=== PATIENT | female | born 1970 | race American Indian/Alaskan Native ===

== ENCOUNTER 2022-03-13 15:48 | Inpatient (IN) | payer SELFPAY ==
[2022-03-13] MEDS ORDERED: Sodium Chloride 0.9% 10 ML Syringe FLUSH PRN (16:11)
[2022-03-13] MEDS ORDERED: Albuterol 0.083% 2.5 MG/3 ML Neb Soln NEB PRN (16:11)
[2022-03-13] MEDS ORDERED: Ondansetron 4 MG/2 ML SDV IV PRN (16:11)
[2022-03-13] MEDS: Acetaminophen 325 MG Tab PO PRN (16:56)
[2022-03-13] MEDS: methylPREDNISolone Sodium Succinate 40 MG/1 ML SDV IVPUSH SCH ×2 (16:56→23:42)
[2022-03-13] MEDS: Enoxaparin 40 MG/0.4 ML Syringe SUBCUT SCH (17:00)
[2022-03-13] MEDS: Sodium Chloride 0.9% 1,000 ML IV SCH (17:01)
[2022-03-13] MEDS: Albuterol/Ipratropium 3.0-0.5 MG/3 ML Neb Soln NEB SCH (21:27)
[2022-03-13] MEDS: Melatonin 3 MG Tab PO SCH (21:30)
[2022-03-14] MEDS: Acetaminophen 325 MG Tab PO PRN ×3 (01:12→10:33)
[2022-03-14] MEDS: Sodium Chloride 0.9% 1,000 ML IV SCH ×2 (02:19→08:46)
[2022-03-14] MEDS: Albuterol/Ipratropium 3.0-0.5 MG/3 ML Neb Soln NEB SCH ×4 (07:08→20:19)
[2022-03-14] MEDS: methylPREDNISolone Sodium Succinate 40 MG/1 ML SDV IVPUSH SCH ×3 (08:41→23:32)
[2022-03-14] MEDS: Levothyroxine 50 MCG Tab PO SCH (08:41)
[2022-03-14] MEDS: cefTRIAXone 1 GM in Sodium Chloride 0.9% 50 ML IV SCH (10:34)
[2022-03-14] MEDS: Azithromycin 500 MG in Sodium Chloride 0.9% 250 ML IV SCH (12:15)
[2022-03-14] MEDS ORDERED: Furosemide 40 MG/4 ML VIAL IVPUSH ONE (12:23)
[2022-03-14] MEDS ORDERED: Benzocaine/Cetylpyridinium/Menthol Lozenge MUCMEM PRN (12:26)
[2022-03-14] MEDS ORDERED: Nicotine Polacrilex 2 MG Gum CHEW PRN (12:57)
[2022-03-14] MEDS ORDERED: LORazepam 0.5 MG Tab PO PRN (12:58)
[2022-03-14] MEDS: oxyCODONE 5 MG Tab PO PRN ×2 (13:05→20:28)
[2022-03-14] MEDS: Nicotine 14 MG/24 Hr Patch TRDERM SCH (13:10)
[2022-03-14] MEDS: Enoxaparin 40 MG/0.4 ML Syringe SUBCUT SCH (17:00)
[2022-03-14] MEDS: Melatonin 3 MG Tab PO SCH (20:19)
[2022-03-14] MEDS ORDERED: Furosemide 20 MG/2 ML VIAL IVPUSH ONE (21:00)
[2022-03-15] MEDS: oxyCODONE 5 MG Tab PO PRN ×2 (06:59→21:43)
[2022-03-15] MEDS: Acetaminophen 325 MG Tab PO PRN ×2 (06:59→19:11)
[2022-03-15] MEDS: Albuterol/Ipratropium 3.0-0.5 MG/3 ML Neb Soln NEB SCH ×4 (07:50→21:41)
[2022-03-15] MEDS ORDERED: Furosemide 40 MG/4 ML VIAL IVPUSH ONE (08:30)
[2022-03-15] MEDS: Levothyroxine 50 MCG Tab PO SCH (08:40)
[2022-03-15] MEDS: methylPREDNISolone Sodium Succinate 40 MG/1 ML SDV IVPUSH SCH ×3 (08:42→23:53)
[2022-03-15] MEDS: Nicotine 14 MG/24 Hr Patch TRDERM SCH (08:43)
[2022-03-15] MEDS: cefTRIAXone 1 GM in Sodium Chloride 0.9% 50 ML IV SCH (11:34)
[2022-03-15] MEDS: Azithromycin 500 MG in Sodium Chloride 0.9% 250 ML IV SCH (12:09)
[2022-03-15] MEDS: Enoxaparin 40 MG/0.4 ML Syringe SUBCUT SCH (17:21)
[2022-03-15] MEDS: Melatonin 3 MG Tab PO SCH (21:43)
[2022-03-16] MEDS: oxyCODONE 5 MG Tab PO PRN (04:38)
[2022-03-16] MEDS: Albuterol/Ipratropium 3.0-0.5 MG/3 ML Neb Soln NEB SCH ×4 (07:01→20:31)
[2022-03-16] MEDS: Levothyroxine 50 MCG Tab PO SCH (08:52)
[2022-03-16] MEDS: predniSONE 20 MG Tab PO SCH (08:52)
[2022-03-16] MEDS: Nicotine 14 MG/24 Hr Patch TRDERM SCH (08:53)
[2022-03-16] MEDS: cefTRIAXone 1 GM in Sodium Chloride 0.9% 50 ML IV SCH (11:10)
[2022-03-16] MEDS: Azithromycin 500 MG in Sodium Chloride 0.9% 250 ML IV SCH (12:03)
[2022-03-16] MEDS: Enoxaparin 40 MG/0.4 ML Syringe SUBCUT SCH (18:00)
[2022-03-16] MEDS ORDERED: Lisinopril 10 MG Tab PO ONE (18:16)
[2022-03-16] MEDS: Melatonin 3 MG Tab PO SCH (20:31)
[2022-03-17] MEDS: oxyCODONE 5 MG Tab PO PRN (05:47)
[2022-03-17] MEDS: Acetaminophen 325 MG Tab PO PRN (05:48)
[2022-03-17] MEDS: Albuterol/Ipratropium 3.0-0.5 MG/3 ML Neb Soln NEB SCH ×4 (07:25→21:48)
[2022-03-17] MEDS: Levothyroxine 50 MCG Tab PO SCH (09:07)
[2022-03-17] MEDS: predniSONE 20 MG Tab PO SCH (09:07)
[2022-03-17] MEDS: Nicotine 14 MG/24 Hr Patch TRDERM SCH (09:07)
[2022-03-17] MEDS: cefTRIAXone 1 GM in Sodium Chloride 0.9% 50 ML IV SCH (11:46)
[2022-03-17] MEDS: Losartan 50 MG Tab PO SCH (11:46)
[2022-03-17] MEDS ORDERED: Polyethylene Glycol 3350 Powder 17 GM Packet PO ONE (12:00)
[2022-03-17] MEDS: Azithromycin 500 MG in Sodium Chloride 0.9% 250 ML IV SCH (12:25)
[2022-03-17] MEDS: Enoxaparin 40 MG/0.4 ML Syringe SUBCUT SCH (18:14)
[2022-03-17] MEDS: Melatonin 3 MG Tab PO SCH (21:48)
[2022-03-18] MEDS: Albuterol/Ipratropium 3.0-0.5 MG/3 ML Neb Soln NEB SCH ×2 (07:50→10:52)
[2022-03-18] MEDS: predniSONE 20 MG Tab PO SCH (08:54)
[2022-03-18] MEDS: Losartan 50 MG Tab PO SCH (08:55)
[2022-03-18] MEDS: Nicotine 14 MG/24 Hr Patch TRDERM SCH (08:55)
[2022-03-18] MEDS: Levothyroxine 50 MCG Tab PO SCH (08:55)
== END 2022-03-18 11:20 | disposition home or self-care (01) | DRG 193 ==
LOC: JP.2SS 15:48
PROVIDERS: ADMIT Hospitalist; ATTEND Hospitalist
PROC: 5A0935A Assistance with Respiratory Ventilation, Less than 24 Consecutive Hours, High Flow/Velocity Cannula (ICD-10-PCS; principal; 2022-03-14)
DX: J18.9 Pneumonia, unspecified organism (principal); J96.01 Acute respiratory failure with hypoxia; J45.901 Unspecified asthma with (acute) exacerbation; I24.8 Other forms of acute ischemic heart disease; F17.210 Nicotine dependence, cigarettes, uncomplicated; I10 Essential (primary) hypertension
CPT/HCPCS: 36415; 71046; 71046-26; 80048; 80053; 83735; 84484; 85025; 93306; 94640; 94667; 99222; 99232; 99238; A9270-GY; J0456; J0696; J1650; J1940; J2920; J3490; J7030; J7050; J7512; J7620

== ENCOUNTER 2025-10-11 19:30 | Emergency (ER) | payer SELFPAY ==
[2025-10-11] MEDS ORDERED: Sodium Chloride 0.9% 10 ML Syringe FLUSH PRN (19:59)
[2025-10-11 20:02] LABS: BASOPHILS ABSOLUTE AUTO 0.11 K/uL (0.00-0.10); BASOPHILS PERCENT AUTO 1.4 % (0.1-1.3); EOSINOPHILS ABSOLUTE AUTO 0.55 K/uL (0.00-0.40); EOSINOPHILS PERCENT AUTO 7.1 % (0.0-5.4); IMMATURE GRAN ABSOLUTE AUTO 0.02 K/uL (0.00-0.23); IMMATURE GRAN PERCENT AUTO 0.3 % (0.0-0.7); LYMPHOCYTES ABSOLUTE AUTO 1.40 K/uL (0.8-3.3); LYMPHOCYTES PERCENT AUTO 18.0 % (11.4-47.7); MONOCYTES ABSOLUTE AUTO 0.40 K/uL (0.20-0.90); MONOCYTES PERCENT AUTO 5.1 % (3.3-12.6); NEUTROPHILS ABSOLUTE AUTO 5.29 K/uL (1.0-7.6); NEUTROPHILS PERCENT AUTO 68.1 % (40.0-78.1); PLATELET COUNT,PLT 245 K/uL (130-375); RED BLOOD CELL COUNT 5.45 M/uL (3.77-5.24); WHITE BLOOD CELL COUNT,WBC 7.8 K/uL (3.2-11.0)
[2025-10-11 20:22] LABS: A/G RATIO 1.0 (1.2-2.2); ALANINE AMINOTRANSFERASE,ALT 36 U/L (12-78); ASPARTATE AMNIOTRANSFERASE,AST 40 U/L (15-37); BILIRUBIN TOTAL 0.9 mg/dL (0.2-1.0); BLOOD UREA NITROGEN,BUN 19 mg/dL (7-18); CARBON DIOXIDE,CO2 32 mmol/L (21-32); CHLORIDE,CL 97 mmol/L (100-108); CREATININE 1.3 mg/dL (0.6-1.0); EST CRCL DRUG DOSING (CG) 43.71 mL/min; ESTIMATED GFR 49 mL/min (>60); GLUCOSE RANDOM 229 mg/dL (74-106); POTASSIUM,K 3.6 mmol/L (3.6-5.2); PRO B-TYPE NATRIUR PEPT,BNPPRO 2539 pg/mL (5-125); PROTEIN TOTAL,TP 7.7 g/dL (6.4-8.2); SODIUM,NA 138 mmol/L (140-148)
[2025-10-11 20:23] LABS: TROPONIN I HIGH SENSITIVITY 147.8 pg/mL (<=60.3)
[2025-10-11] MEDS: Furosemide 40 MG/4 ML VIAL IVPUSH ONE (22:10)
[2025-10-12] MEDS: LORazepam 2 MG/ML SDV IVPUSH ONE (04:02)
== END 2025-10-12 05:00 ==
LOC: JP.ED 19:30
DX: I31.39 Other pericardial effusion (noninflammatory) (principal)
CPT/HCPCS: 36415; 71046; 71250; 80053; 83036; 83605; 83880; 84443; 84484; 85025; 86140; 93005; 93010; 94640; 96374; 96375; 99285; A9270; J1938; J2060; J7620